=== PATIENT | male | born 1995 | race Caucasian/White ===

== ENCOUNTER → 2017-08-12 | Outpatient (CLI) | payer BC ==
--- NOTE | 2017-08-12 11:35 | PCVCIMAG ---
APPROVED REPORT Study performed: 08/12/2017 09:09:35 EXAM: Comprehensive 2D, Doppler, and color-flow Echocardiogram Patient Location: Echo lab Status: routine BSA: 2.40 HR: 45 bpmBP: 100/60 mmHg Other Information Study Quality: Excellent Indications Family history of Biscupid Aortic Valve. 2D Dimensions LVEF(%): 49.67 (>50%) IVSd: 6.26 (7-11mm)LVOT Diam: 23.07 (18-24mm) LVDd: 59.99 mm PWd: 7.72 (7-11mm)Ascending Ao: 39.31 (22-36mm) LVDs: 44.60 (25-40mm) Left Atrium: 31.81 (27-40mm) Aortic Root: 31.23 mm LV Single Plane 2CH: 64.05 %March's LVEF: 49.67 % Volumes Left Atrial Volume (Systole) Single Plane 4CH: 44.38 mLSingle Plane 2CH: 49.28 mL LA ESV Index: 22.00 mL/m2 Aortic Valve AoV Peak Clifton.: 1.10 m/s AO Peak Gr.: 4.85 mmHgLVOT Max P.39 mmHg LVOT Max V: 1.05 m/s PARRISH Vmax: 3.98 cm2 Mitral Valve E/A Ratio: 2.2 MV Decel. Time: 175.02 ms MV E Max Clifton.: 0.99 m/s MV A Clifton.: 0.46 m/s IVRT: 89.97 ms TDI E/Lateral E': 8.25E/Medial E': 9.00 Medial E' Clifton.: 0.11 m/s Lateral E' Clifton.: 0.12 m/s Pulmonary Valve PV Peak Gr.: 2.07 mmHg Tricuspid Valve TR Peak Clifton.: 2.28 m/s TR Peak Gr.: 20.74 mmHg Left Ventricle The left ventricle is normal size. There is normal LV segmental wall motion. There is normal left ventricular wall thickness. Left ventricular systolic function is normal. The left ventricular ejection fraction is within the normal range. LVEF is 65%. The left ventricular diastolic function is normal. Right Ventricle The right ventricle is normal size. The right ventricular systolic function is normal. Atria The left atrium size is normal. The right atrium size is normal. Aortic Valve The aortic valve is normal in structure. No aortic regurgitation is present. There is no aortic valvular stenosis. Mitral Valve The mitral valve is normal in structure. There is no mitral valve regurgitation noted. No evidence of mitral valve stenosis. Tricuspid Valve The tricuspid valve is normal in structure. Trace tricuspid regurgitation. Pulmonic Valve The pulmonary valve is normal in structure. Trace pulmonic regurgitation. Great Vessels The aortic root is normal in size. IVC is normal in size and collapses with >50% inspiration Pericardium There is no pericardial effusion. <Conclusion> Left ventricular systolic function is normal. There is normal LV segmental wall motion. LVEF is 65%. Normal diastolic function Structural valve disease was absent. No significant regurgitant or stenotic lesions There is no pericardial effusion.
== END | disposition home or self-care (01) ==
LOC: PCVCIMAG 09:00
PROVIDERS: ATTEND Internal Medicine
DX: Z82.49 Family history of ischemic heart disease and other diseases of the circulatory system (principal)
CPT/HCPCS: 93306